=== PATIENT | female | born 1940 | race Hispanic/Latino ===

== ENCOUNTER → 2018-07-18 | Outpatient (CLI) | payer MEDICARE ==
[~2018-07-18] MED LIST: ASPI-555 PO; GABA-531 PO; HYDR12.530 PO; INSU100I13 SQ; LINA145C PO; LISI40TA4 PO; LORA1TAB3 PO; LOVA40TA2 PO; NAPR-1023 PO; OXYB5TAB10 PO; PANT40TA25 PO
== END | disposition home or self-care (01) ==
LOC: RAH 09:35
PROVIDERS: ATTEND Internal Medicine
DX: K22.4 Dyskinesia of esophagus (principal); Z91.89 Other specified personal risk factors, not elsewhere classified
CPT/HCPCS: 74240

== ENCOUNTER → 2019-02-27 | Outpatient (CLI) | payer OTHER, MEDICARE ==
[~2019-02-27] MED LIST changes: -OXYB5TAB10 PO; +OXYB5TAB15 PO
== END | disposition home or self-care (01) ==
LOC: RAH 12:25
PROVIDERS: ATTEND Internal Medicine
DX: M19.011 Primary osteoarthritis, right shoulder (principal)
CPT/HCPCS: 73030

== ENCOUNTER → 2020-04-14 | Outpatient (CLI) | payer OTHER, MEDICARE ==
[~2020-04-14] MED LIST changes: -ASPI-555 PO; +ASPI-556 PO; +LIDOCAINE HCL 2% JELLY 5 ML TP ONE; -LISI40TA4 PO; +LISI40TA9 PO; -PANT40TA25 PO; +PANT40TA54 PO
== END | disposition home or self-care (01) ==
LOC: WHH 13:00
PROVIDERS: ATTEND Specialist
DX: S81.801A Unspecified open wound, right lower leg, initial encounter (principal); E11.622 Type 2 diabetes mellitus with other skin ulcer; L97.211 Non-pressure chronic ulcer of right calf limited to breakdown of skin; E66.9 Obesity, unspecified; I10 Essential (primary) hypertension; E78.5 Hyperlipidemia, unspecified; Z68.42 Body mass index [BMI] 45.0-49.9, adult; Z88.0 Allergy status to penicillin; Z96.653 Presence of artificial knee joint, bilateral; Z88.2 Allergy status to sulfonamides; X58.XXXA Exposure to other specified factors, initial encounter; Y93.89 Activity, other specified; Y92.89 Other specified places as the place of occurrence of the external cause; Y99.8 Other external cause status
CPT/HCPCS: A4450; G0463

== ENCOUNTER → 2020-04-28 | Outpatient (CLI) | payer OTHER, MEDICARE | END | disposition home or self-care (01) | LOC: WHH 12:55 | PROVIDERS: ATTEND Specialist | DX: S81.801D Unspecified open wound, right lower leg, subsequent encounter (principal); E11.622 Type 2 diabetes mellitus with other skin ulcer; L97.211 Non-pressure chronic ulcer of right calf limited to breakdown of skin; E66.9 Obesity, unspecified; I10 Essential (primary) hypertension; E78.5 Hyperlipidemia, unspecified; Z68.42 Body mass index [BMI] 45.0-49.9, adult; Z88.0 Allergy status to penicillin; Z96.653 Presence of artificial knee joint, bilateral; Z88.2 Allergy status to sulfonamides; X58.XXXD Exposure to other specified factors, subsequent encounter | CPT/HCPCS: 87070; 87077; 87186; G0463 ==

== ENCOUNTER → 2020-05-12 | Outpatient (CLI) | payer OTHER, MEDICARE | END | disposition home or self-care (01) | LOC: WHH 13:00 | PROVIDERS: ATTEND Specialist | DX: S81.801D Unspecified open wound, right lower leg, subsequent encounter (principal); E11.622 Type 2 diabetes mellitus with other skin ulcer; L97.211 Non-pressure chronic ulcer of right calf limited to breakdown of skin; E66.9 Obesity, unspecified; I10 Essential (primary) hypertension; E78.5 Hyperlipidemia, unspecified; Z68.42 Body mass index [BMI] 45.0-49.9, adult; Z88.0 Allergy status to penicillin; Z96.653 Presence of artificial knee joint, bilateral; Z88.2 Allergy status to sulfonamides; X58.XXXD Exposure to other specified factors, subsequent encounter | CPT/HCPCS: 11042; A6209 ==

== ENCOUNTER → 2020-05-26 | Outpatient (CLI) | payer OTHER, MEDICARE | END | disposition home or self-care (01) | LOC: WHH 13:00 | PROVIDERS: ATTEND Specialist | DX: S81.801D Unspecified open wound, right lower leg, subsequent encounter (principal); E11.622 Type 2 diabetes mellitus with other skin ulcer; L97.211 Non-pressure chronic ulcer of right calf limited to breakdown of skin; I10 Essential (primary) hypertension; E78.5 Hyperlipidemia, unspecified; E66.01 Morbid (severe) obesity due to excess calories; Z68.42 Body mass index [BMI] 45.0-49.9, adult; Z88.0 Allergy status to penicillin; Z96.653 Presence of artificial knee joint, bilateral; Z88.2 Allergy status to sulfonamides; X58.XXXD Exposure to other specified factors, subsequent encounter | CPT/HCPCS: A4450; A6209; A6450; G0463 ==

== ENCOUNTER → 2020-06-09 | Outpatient (CLI) | payer OTHER, MEDICARE | END | disposition home or self-care (01) | LOC: WHH 13:00 | PROVIDERS: ATTEND Specialist | DX: S81.801D Unspecified open wound, right lower leg, subsequent encounter (principal); E11.622 Type 2 diabetes mellitus with other skin ulcer; L97.211 Non-pressure chronic ulcer of right calf limited to breakdown of skin; I10 Essential (primary) hypertension; E78.5 Hyperlipidemia, unspecified; E66.01 Morbid (severe) obesity due to excess calories; Z68.42 Body mass index [BMI] 45.0-49.9, adult; Z88.0 Allergy status to penicillin; Z96.653 Presence of artificial knee joint, bilateral; Z88.2 Allergy status to sulfonamides; X58.XXXD Exposure to other specified factors, subsequent encounter | CPT/HCPCS: A6209; G0463 ==

== ENCOUNTER → 2020-06-23 | Outpatient (CLI) | payer OTHER, MEDICARE | END | disposition home or self-care (01) | LOC: WHH 13:34 | PROVIDERS: ATTEND Specialist | DX: S81.801D Unspecified open wound, right lower leg, subsequent encounter (principal); E11.622 Type 2 diabetes mellitus with other skin ulcer; L97.211 Non-pressure chronic ulcer of right calf limited to breakdown of skin; I10 Essential (primary) hypertension; E78.5 Hyperlipidemia, unspecified; E66.01 Morbid (severe) obesity due to excess calories; Z68.42 Body mass index [BMI] 45.0-49.9, adult; Z88.0 Allergy status to penicillin; Z96.653 Presence of artificial knee joint, bilateral; Z88.2 Allergy status to sulfonamides; X58.XXXD Exposure to other specified factors, subsequent encounter | CPT/HCPCS: A6209; G0463 ==

== ENCOUNTER → 2020-07-14 | Outpatient (CLI) | payer OTHER, MEDICARE ==
[~2020-07-14] MED LIST changes: -LIDOCAINE HCL 2% JELLY 5 ML TP ONE; +LIDOCAINE HCL 4% LTA SOL 4 ML VIAL TP ONE
== END | disposition home or self-care (01) ==
LOC: WHH 13:40
PROVIDERS: ATTEND Specialist
DX: S81.801D Unspecified open wound, right lower leg, subsequent encounter (principal); E11.622 Type 2 diabetes mellitus with other skin ulcer; L97.211 Non-pressure chronic ulcer of right calf limited to breakdown of skin; I10 Essential (primary) hypertension; E78.5 Hyperlipidemia, unspecified; E66.01 Morbid (severe) obesity due to excess calories; Z68.42 Body mass index [BMI] 45.0-49.9, adult; Z88.0 Allergy status to penicillin; Z96.653 Presence of artificial knee joint, bilateral; Z88.2 Allergy status to sulfonamides; X58.XXXD Exposure to other specified factors, subsequent encounter
CPT/HCPCS: A6207; G0463

== ENCOUNTER → 2021-08-31 | Outpatient (CLI) | payer OTHER, MEDICARE ==
[~2021-08-31] MED LIST changes: -LIDOCAINE HCL 4% LTA SOL 4 ML VIAL TP ONE
== END | disposition home or self-care (01) ==
LOC: RAH 15:01
PROVIDERS: ATTEND Internal Medicine
DX: M47.816 Spondylosis without myelopathy or radiculopathy, lumbar region (principal); M54.50 Low back pain, unspecified; M25.511 Pain in right shoulder; M54.2 Cervicalgia
CPT/HCPCS: 72040; 72072; 72100; 73030; 73502

== ENCOUNTER → 2021-09-28 | Outpatient (CLI) | payer OTHER, MEDICARE | END | disposition home or self-care (01) | LOC: RAH 09:05 | PROVIDERS: ATTEND Internal Medicine | DX: I65.23 Occlusion and stenosis of bilateral carotid arteries (principal) | CPT/HCPCS: 93880 ==

== ENCOUNTER → 2021-10-05 | Outpatient (CLI) | payer OTHER, MEDICARE | END | disposition home or self-care (01) | LOC: RAH 15:15 | PROVIDERS: ATTEND Internal Medicine | DX: S00.93XA Contusion of unspecified part of head, initial encounter (principal); R51.9 Headache, unspecified; W19.XXXA Unspecified fall, initial encounter | CPT/HCPCS: 70450; 70460 ==

== ENCOUNTER → 2022-09-04 | Outpatient (CLI) | payer OTHER, MEDICARE | END | disposition home or self-care (01) | LOC: RAH 12:21 | PROVIDERS: ATTEND Internal Medicine | DX: Z01.818 Encounter for other preprocedural examination (principal) | CPT/HCPCS: 71046 ==